=== PATIENT | female | born 1935 | race Caucasian/White ===

== ENCOUNTER → 2020-06-06 | Outpatient (CLI) | payer OTHER, MEDICARE | LOC: HYPER 13:37 | PROVIDERS: ATTEND Emergency Medicine | DX: L97.322 Non-pressure chronic ulcer of left ankle with fat layer exposed (principal); L20.84 Intrinsic (allergic) eczema; I87.2 Venous insufficiency (chronic) (peripheral); H40.9 Unspecified glaucoma; E78.5 Hyperlipidemia, unspecified; Z90.710 Acquired absence of both cervix and uterus; Z86.718 Personal history of other venous thrombosis and embolism; Z79.82 Long term (current) use of aspirin ==

== ENCOUNTER → 2020-06-14 | Outpatient (CLI) | payer OTHER, MEDICARE | LOC: HYPER 10:42 | PROVIDERS: ATTEND Emergency Medicine | DX: L97.322 Non-pressure chronic ulcer of left ankle with fat layer exposed (principal); L20.84 Intrinsic (allergic) eczema; I87.2 Venous insufficiency (chronic) (peripheral); H40.9 Unspecified glaucoma; E78.5 Hyperlipidemia, unspecified; Z90.710 Acquired absence of both cervix and uterus; Z86.718 Personal history of other venous thrombosis and embolism; Z79.82 Long term (current) use of aspirin ==

== ENCOUNTER → 2020-06-25 | Outpatient (CLI) | payer OTHER, MEDICARE | LOC: HYPER 10:15 | PROVIDERS: ATTEND Emergency Medicine | DX: L97.322 Non-pressure chronic ulcer of left ankle with fat layer exposed (principal); L20.84 Intrinsic (allergic) eczema; R60.0 Localized edema; E78.5 Hyperlipidemia, unspecified; H40.9 Unspecified glaucoma; I87.2 Venous insufficiency (chronic) (peripheral); Z86.718 Personal history of other venous thrombosis and embolism ==

== ENCOUNTER → 2020-07-03 | Outpatient (CLI) | payer OTHER, MEDICARE | LOC: HYPER 09:28 | PROVIDERS: ATTEND Emergency Medicine | DX: L97.322 Non-pressure chronic ulcer of left ankle with fat layer exposed (principal); L97.822 Non-pressure chronic ulcer of other part of left lower leg with fat layer exposed; I87.2 Venous insufficiency (chronic) (peripheral); L20.84 Intrinsic (allergic) eczema; R60.0 Localized edema; H40.9 Unspecified glaucoma; E78.5 Hyperlipidemia, unspecified; Z86.718 Personal history of other venous thrombosis and embolism; Z79.82 Long term (current) use of aspirin ==

== ENCOUNTER → 2020-07-10 | Outpatient (CLI) | payer OTHER, MEDICARE | LOC: HYPER 09:54 | PROVIDERS: ATTEND Emergency Medicine | DX: L97.322 Non-pressure chronic ulcer of left ankle with fat layer exposed (principal); L97.822 Non-pressure chronic ulcer of other part of left lower leg with fat layer exposed; I87.2 Venous insufficiency (chronic) (peripheral); L20.84 Intrinsic (allergic) eczema; R60.0 Localized edema; H40.9 Unspecified glaucoma; E78.5 Hyperlipidemia, unspecified; Z86.718 Personal history of other venous thrombosis and embolism; Z90.710 Acquired absence of both cervix and uterus; Z79.82 Long term (current) use of aspirin ==

== ENCOUNTER → 2020-07-17 | Outpatient (CLI) | payer OTHER, MEDICARE | LOC: HYPER 10:14 | PROVIDERS: ATTEND Emergency Medicine | DX: L97.322 Non-pressure chronic ulcer of left ankle with fat layer exposed (principal); L97.822 Non-pressure chronic ulcer of other part of left lower leg with fat layer exposed; I87.2 Venous insufficiency (chronic) (peripheral); L20.84 Intrinsic (allergic) eczema; R60.0 Localized edema; H40.9 Unspecified glaucoma; E78.5 Hyperlipidemia, unspecified; Z86.718 Personal history of other venous thrombosis and embolism; Z90.710 Acquired absence of both cervix and uterus; Z79.82 Long term (current) use of aspirin ==

== ENCOUNTER → 2020-08-02 | Outpatient (CLI) | payer OTHER, MEDICARE | LOC: HYPER 09:53 | PROVIDERS: ATTEND Emergency Medicine | DX: L97.322 Non-pressure chronic ulcer of left ankle with fat layer exposed (principal); I87.2 Venous insufficiency (chronic) (peripheral); L20.84 Intrinsic (allergic) eczema; R60.0 Localized edema; H40.9 Unspecified glaucoma; E78.5 Hyperlipidemia, unspecified; Z86.718 Personal history of other venous thrombosis and embolism; Z90.710 Acquired absence of both cervix and uterus ==

== ENCOUNTER → 2020-08-08 | Outpatient (CLI) | payer OTHER, MEDICARE | LOC: HYPER 13:34 | PROVIDERS: ATTEND Emergency Medicine | DX: L97.322 Non-pressure chronic ulcer of left ankle with fat layer exposed (principal); I87.2 Venous insufficiency (chronic) (peripheral); L20.84 Intrinsic (allergic) eczema; R60.0 Localized edema; H40.9 Unspecified glaucoma; E78.5 Hyperlipidemia, unspecified; Z86.718 Personal history of other venous thrombosis and embolism; Z90.710 Acquired absence of both cervix and uterus ==

== ENCOUNTER → 2020-08-08 | Outpatient (CLI) | payer OTHER, MEDICARE | LOC: SJCVCIMAG 11:12 | PROVIDERS: ATTEND Nuclear Medicine Nuclear Cardiology | DX: I73.9 Peripheral vascular disease, unspecified (principal); L97.828 Non-pressure chronic ulcer of other part of left lower leg with other specified severity; Z79.899 Other long term (current) drug therapy ==

== ENCOUNTER → 2020-08-21 | Outpatient (CLI) | payer OTHER, MEDICARE | LOC: HYPER 14:50 | PROVIDERS: ATTEND Emergency Medicine | DX: L97.322 Non-pressure chronic ulcer of left ankle with fat layer exposed (principal); L20.84 Intrinsic (allergic) eczema; I87.2 Venous insufficiency (chronic) (peripheral); R60.0 Localized edema; H40.9 Unspecified glaucoma; E78.5 Hyperlipidemia, unspecified; Z86.718 Personal history of other venous thrombosis and embolism; Z90.710 Acquired absence of both cervix and uterus ==

== ENCOUNTER → 2020-08-29 | Outpatient (CLI) | payer OTHER, MEDICARE | LOC: HYPER 09:06 | PROVIDERS: ATTEND Emergency Medicine | DX: L97.322 Non-pressure chronic ulcer of left ankle with fat layer exposed (principal); L20.84 Intrinsic (allergic) eczema; I87.2 Venous insufficiency (chronic) (peripheral); R60.0 Localized edema; H40.9 Unspecified glaucoma; E78.5 Hyperlipidemia, unspecified; Z86.718 Personal history of other venous thrombosis and embolism; Z90.710 Acquired absence of both cervix and uterus ==

== ENCOUNTER → 2020-09-05 | Outpatient (CLI) | payer OTHER, MEDICARE | LOC: HYPER 08:55 | PROVIDERS: ATTEND Emergency Medicine | DX: L97.322 Non-pressure chronic ulcer of left ankle with fat layer exposed (principal); L20.84 Intrinsic (allergic) eczema; I87.2 Venous insufficiency (chronic) (peripheral); R60.0 Localized edema; H40.9 Unspecified glaucoma; E78.5 Hyperlipidemia, unspecified; Z86.718 Personal history of other venous thrombosis and embolism; Z90.710 Acquired absence of both cervix and uterus ==

== ENCOUNTER → 2020-09-13 | Outpatient (CLI) | payer OTHER, MEDICARE | LOC: HYPER 14:41 | PROVIDERS: ATTEND Emergency Medicine | DX: L97.322 Non-pressure chronic ulcer of left ankle with fat layer exposed (principal); L97.822 Non-pressure chronic ulcer of other part of left lower leg with fat layer exposed; I87.2 Venous insufficiency (chronic) (peripheral); L20.84 Intrinsic (allergic) eczema; R60.0 Localized edema; H40.9 Unspecified glaucoma; E78.5 Hyperlipidemia, unspecified; Z79.82 Long term (current) use of aspirin; Z86.718 Personal history of other venous thrombosis and embolism; Z90.710 Acquired absence of both cervix and uterus ==

== ENCOUNTER → 2020-09-19 | Outpatient (CLI) | payer OTHER, MEDICARE | LOC: HYPER 15:08 | PROVIDERS: ATTEND Emergency Medicine | DX: L97.322 Non-pressure chronic ulcer of left ankle with fat layer exposed (principal); L20.84 Intrinsic (allergic) eczema; R60.0 Localized edema; H40.9 Unspecified glaucoma; E78.5 Hyperlipidemia, unspecified; I87.2 Venous insufficiency (chronic) (peripheral); Z86.718 Personal history of other venous thrombosis and embolism; Z90.710 Acquired absence of both cervix and uterus ==

== ENCOUNTER → 2020-09-27 | Outpatient (CLI) | payer OTHER, MEDICARE | LOC: HYPER 11:40 | PROVIDERS: ATTEND Emergency Medicine | DX: L97.322 Non-pressure chronic ulcer of left ankle with fat layer exposed (principal); L20.84 Intrinsic (allergic) eczema; R60.0 Localized edema; H40.9 Unspecified glaucoma; E78.5 Hyperlipidemia, unspecified; I87.2 Venous insufficiency (chronic) (peripheral); Z86.718 Personal history of other venous thrombosis and embolism; Z90.710 Acquired absence of both cervix and uterus ==

== ENCOUNTER → 2020-10-04 | Outpatient (CLI) | payer OTHER, MEDICARE | LOC: HYPER 09:25 | PROVIDERS: ATTEND Emergency Medicine | DX: L97.322 Non-pressure chronic ulcer of left ankle with fat layer exposed (principal); L20.84 Intrinsic (allergic) eczema; R60.0 Localized edema; H40.9 Unspecified glaucoma; E78.5 Hyperlipidemia, unspecified; I87.2 Venous insufficiency (chronic) (peripheral); Z86.718 Personal history of other venous thrombosis and embolism; Z90.710 Acquired absence of both cervix and uterus ==

== ENCOUNTER → 2020-10-11 | Outpatient (CLI) | payer OTHER, MEDICARE | LOC: HYPER 09:21 | PROVIDERS: ATTEND Emergency Medicine | DX: L97.322 Non-pressure chronic ulcer of left ankle with fat layer exposed (principal); L20.84 Intrinsic (allergic) eczema; R60.0 Localized edema; H40.9 Unspecified glaucoma; E78.5 Hyperlipidemia, unspecified; I87.2 Venous insufficiency (chronic) (peripheral); Z86.718 Personal history of other venous thrombosis and embolism; Z90.710 Acquired absence of both cervix and uterus ==

== ENCOUNTER → 2020-10-18 | Outpatient (CLI) | payer OTHER, MEDICARE | LOC: HYPER 09:23 | PROVIDERS: ATTEND Emergency Medicine | DX: L97.322 Non-pressure chronic ulcer of left ankle with fat layer exposed (principal); L20.84 Intrinsic (allergic) eczema; R60.0 Localized edema; H40.9 Unspecified glaucoma; E78.5 Hyperlipidemia, unspecified; I87.2 Venous insufficiency (chronic) (peripheral); Z86.718 Personal history of other venous thrombosis and embolism; Z90.710 Acquired absence of both cervix and uterus ==

== ENCOUNTER → 2020-10-25 | Outpatient (CLI) | payer OTHER, MEDICARE | LOC: HYPER 13:02 | PROVIDERS: ATTEND Emergency Medicine | DX: L97.322 Non-pressure chronic ulcer of left ankle with fat layer exposed (principal); L20.84 Intrinsic (allergic) eczema; R60.0 Localized edema; H40.9 Unspecified glaucoma; E78.5 Hyperlipidemia, unspecified; I87.2 Venous insufficiency (chronic) (peripheral); Z86.718 Personal history of other venous thrombosis and embolism ==

== ENCOUNTER → 2020-11-01 | Outpatient (CLI) | payer OTHER, MEDICARE | LOC: HYPER 13:39 | PROVIDERS: ATTEND Emergency Medicine | DX: L97.322 Non-pressure chronic ulcer of left ankle with fat layer exposed (principal); L97.822 Non-pressure chronic ulcer of other part of left lower leg with fat layer exposed; I87.2 Venous insufficiency (chronic) (peripheral); L20.84 Intrinsic (allergic) eczema; R60.0 Localized edema; H40.9 Unspecified glaucoma; E78.5 Hyperlipidemia, unspecified; Z86.718 Personal history of other venous thrombosis and embolism; Z79.82 Long term (current) use of aspirin; Z79.899 Other long term (current) drug therapy; Z90.710 Acquired absence of both cervix and uterus ==

== ENCOUNTER → 2020-11-08 | Outpatient (CLI) | payer OTHER, MEDICARE | LOC: HYPER 09:56 | PROVIDERS: ATTEND Emergency Medicine | DX: L97.322 Non-pressure chronic ulcer of left ankle with fat layer exposed (principal); L97.822 Non-pressure chronic ulcer of other part of left lower leg with fat layer exposed; I87.2 Venous insufficiency (chronic) (peripheral); L20.84 Intrinsic (allergic) eczema; R60.0 Localized edema; H40.9 Unspecified glaucoma; E78.5 Hyperlipidemia, unspecified; Z86.718 Personal history of other venous thrombosis and embolism; Z90.710 Acquired absence of both cervix and uterus; Z79.82 Long term (current) use of aspirin; Z79.899 Other long term (current) drug therapy ==

== ENCOUNTER → 2020-11-22 | Outpatient (CLI) | payer OTHER, MEDICARE | LOC: HYPER 10:08 | PROVIDERS: ATTEND Emergency Medicine | DX: L97.322 Non-pressure chronic ulcer of left ankle with fat layer exposed (principal); L97.822 Non-pressure chronic ulcer of other part of left lower leg with fat layer exposed; I87.2 Venous insufficiency (chronic) (peripheral); L20.84 Intrinsic (allergic) eczema; L84 Corns and callosities; R60.0 Localized edema; H40.9 Unspecified glaucoma; E78.5 Hyperlipidemia, unspecified; Z86.718 Personal history of other venous thrombosis and embolism ==

== ENCOUNTER → 2020-11-29 | Outpatient (CLI) | payer OTHER, MEDICARE | LOC: HYPER 09:08 | PROVIDERS: ATTEND Emergency Medicine | DX: L97.322 Non-pressure chronic ulcer of left ankle with fat layer exposed (principal); L97.822 Non-pressure chronic ulcer of other part of left lower leg with fat layer exposed; I87.2 Venous insufficiency (chronic) (peripheral); L20.84 Intrinsic (allergic) eczema; L84 Corns and callosities; R60.0 Localized edema; H40.9 Unspecified glaucoma; E78.5 Hyperlipidemia, unspecified; Z86.718 Personal history of other venous thrombosis and embolism ==

== ENCOUNTER → 2020-12-05 | Outpatient (CLI) | payer OTHER, MEDICARE | LOC: HYPER 14:32 | PROVIDERS: ATTEND Emergency Medicine | DX: L97.322 Non-pressure chronic ulcer of left ankle with fat layer exposed (principal); L97.822 Non-pressure chronic ulcer of other part of left lower leg with fat layer exposed; I87.2 Venous insufficiency (chronic) (peripheral); L20.84 Intrinsic (allergic) eczema; R60.0 Localized edema; H40.9 Unspecified glaucoma; E78.5 Hyperlipidemia, unspecified; Z86.718 Personal history of other venous thrombosis and embolism; Z79.82 Long term (current) use of aspirin; Z79.899 Other long term (current) drug therapy ==

== ENCOUNTER → 2020-12-13 | Outpatient (CLI) | payer OTHER, MEDICARE | LOC: HYPER 07:43 | PROVIDERS: ATTEND Emergency Medicine | DX: L97.322 Non-pressure chronic ulcer of left ankle with fat layer exposed (principal); L97.822 Non-pressure chronic ulcer of other part of left lower leg with fat layer exposed; I87.2 Venous insufficiency (chronic) (peripheral); L20.84 Intrinsic (allergic) eczema; R60.0 Localized edema; H40.9 Unspecified glaucoma; E78.5 Hyperlipidemia, unspecified; Z86.718 Personal history of other venous thrombosis and embolism; Z79.899 Other long term (current) drug therapy; Z79.82 Long term (current) use of aspirin; Z90.710 Acquired absence of both cervix and uterus ==

== ENCOUNTER → 2020-12-27 | Outpatient (CLI) | payer OTHER, MEDICARE ==
[~2020-12-27] MED LIST: ALLEGRA ALLERG180 MG PO; ASA81BEC PO; BIOTIN10 MG PO; COSOPT OCUMETER10 M1 OPHTHALMIC; EZETIMIBE10 MG PO; FUROSEMIDE 40 M40 M1 PO; LUMIGAN2.5 M1 OPHTHALMIC; SANTYL OINTMENT30 G1 TOP; VITAMIN D350 MC3 PO
== END ==
LOC: HYPER 08:01
PROVIDERS: ATTEND Emergency Medicine
DX: L97.322 Non-pressure chronic ulcer of left ankle with fat layer exposed (principal); L84 Corns and callosities; L20.84 Intrinsic (allergic) eczema; R60.0 Localized edema; I87.2 Venous insufficiency (chronic) (peripheral); H40.9 Unspecified glaucoma; E78.5 Hyperlipidemia, unspecified; Z86.718 Personal history of other venous thrombosis and embolism; Z79.82 Long term (current) use of aspirin; Z90.710 Acquired absence of both cervix and uterus

== ENCOUNTER → 2020-12-31 | Outpatient (CLI) | payer OTHER, MEDICARE | LOC: LAB 08:45 | PROVIDERS: ATTEND Student in an Organized Health Care Education/Training Program | DX: Z01.812 Encounter for preprocedural laboratory examination (principal); Z20.822 Contact with and (suspected) exposure to COVID-19 ==

== ENCOUNTER 2021-01-02 06:11 | Day surgery (SDC) | payer OTHER, MEDICARE ==
[~2021-01-02] VITALS: Ht 160 cm; Wt 58.1 kg
[2021-01-02 06:40] VITALS: BP 146/76
[2021-01-02 06:58] LABS: HEMATOCRIT 43.3 % (37.0-47.0); HEMOGLOBIN 14.2 gm/dL (12.0-15.0)
[2021-01-02] MEDS ORDERED: ULTRAM 50MG TAB50 MG PO ×2 (08:27)
--- NOTE | 2021-01-02 11:35 | EKG ---
[address] [place] [address] ELECTROCARDIOGRAM REPORT Name: GUALBERTO BARRIOS Room #: 150-1 [facility].#: [id number] Admission: 01/02/21 Attend Phys: Gio Mcneill Discharge: Date of : 37 Report #: [id number] [facility] Test Date: 2021-01-02 Test Time: 06:43:12 Pat Name: GUALBERTO BARRIOS Department: Room: 150 Gender: F [employer]: ERIKA : 1935 Requested By: Gio Lyn Order Number: [id number] MD: Jose Antonio Mccracken Measurements Intervals Murray Rate: 79 P: 50 MI: 164 QRS: -39 QRSD: 100 T: 158 QT: 364 QTc: 418 Interpretive Statements Sinus rhythm LVH with secondary repolarization abnormality No previous ECG available for comparison Electronically Signed On 01-02-2021 11:35:10 CDT by Jose Antonio Mccracken [email or web address] <ELECTRONICALLY SIGNED> By: Jose Antonio Mccracken MD, [facility] 01/02/21 [id number] Jose Antonio Mccracken MD, FACC /EPI
== END 2021-01-02 09:25 | disposition home or self-care (01) ==
LOC: OR → TBA 06:11 → OR 06:11 → TBA 06:12 → OR 09:25
PROVIDERS: ATTEND Surgery
DX: I87.2 Venous insufficiency (chronic) (peripheral) (principal); L97.829 Non-pressure chronic ulcer of other part of left lower leg with unspecified severity; T81.89XA Other complications of procedures, not elsewhere classified, initial encounter; Z98.890 Other specified postprocedural states; Z79.899 Other long term (current) drug therapy; Z98.41 Cataract extraction status, right eye; Z98.42 Cataract extraction status, left eye; Z90.710 Acquired absence of both cervix and uterus; Z90.711 Acquired absence of uterus with remaining cervical stump; Y83.8 Other surgical procedures as the cause of abnormal reaction of the patient, or of later complication, without mention of misadventure at the time of the procedure
CPT/HCPCS: 50010; 50101; 50386; 57091; 57119; 57120; 62110; 62900; 70005

== ENCOUNTER → 2021-01-03 | Outpatient (CLI) | payer OTHER, MEDICARE ==
[~2021-01-03] MED LIST changes: +ULTRAM 50MG TAB50 MG PO
== END ==
LOC: HYPER 07:55
PROVIDERS: ATTEND Emergency Medicine
DX: L97.322 Non-pressure chronic ulcer of left ankle with fat layer exposed (principal); L84 Corns and callosities; L20.84 Intrinsic (allergic) eczema; R60.0 Localized edema; I87.2 Venous insufficiency (chronic) (peripheral); H40.9 Unspecified glaucoma; E78.5 Hyperlipidemia, unspecified; Z86.718 Personal history of other venous thrombosis and embolism; Z79.82 Long term (current) use of aspirin; Z90.710 Acquired absence of both cervix and uterus

== ENCOUNTER → 2021-01-09 | Outpatient (CLI) | payer OTHER, MEDICARE | LOC: HYPER 08:05 | PROVIDERS: ATTEND Emergency Medicine | DX: L97.322 Non-pressure chronic ulcer of left ankle with fat layer exposed (principal); L84 Corns and callosities; L20.84 Intrinsic (allergic) eczema; R60.0 Localized edema; I87.2 Venous insufficiency (chronic) (peripheral); H40.9 Unspecified glaucoma; E78.5 Hyperlipidemia, unspecified; Z86.718 Personal history of other venous thrombosis and embolism; Z79.82 Long term (current) use of aspirin; Z90.710 Acquired absence of both cervix and uterus ==

== ENCOUNTER → 2021-01-16 | Outpatient (CLI) | payer OTHER, MEDICARE | LOC: HYPER 15:06 | PROVIDERS: ATTEND Emergency Medicine | DX: L97.322 Non-pressure chronic ulcer of left ankle with fat layer exposed (principal); L84 Corns and callosities; L20.84 Intrinsic (allergic) eczema; R60.0 Localized edema; I87.2 Venous insufficiency (chronic) (peripheral); H40.9 Unspecified glaucoma; E78.5 Hyperlipidemia, unspecified; Z86.718 Personal history of other venous thrombosis and embolism; Z79.82 Long term (current) use of aspirin; Z90.710 Acquired absence of both cervix and uterus ==

== ENCOUNTER → 2021-01-30 | Outpatient (CLI) | payer OTHER, MEDICARE | LOC: HYPER 07:54 | PROVIDERS: ATTEND Emergency Medicine | DX: L97.322 Non-pressure chronic ulcer of left ankle with fat layer exposed (principal); L84 Corns and callosities; L20.84 Intrinsic (allergic) eczema; R60.0 Localized edema; I87.2 Venous insufficiency (chronic) (peripheral); H40.9 Unspecified glaucoma; E78.5 Hyperlipidemia, unspecified; Z86.718 Personal history of other venous thrombosis and embolism; Z79.82 Long term (current) use of aspirin; Z90.710 Acquired absence of both cervix and uterus ==

== ENCOUNTER → 2021-02-05 | Outpatient (CLI) | payer OTHER, MEDICARE | LOC: HYPER 08:28 | PROVIDERS: ATTEND Emergency Medicine | DX: L97.322 Non-pressure chronic ulcer of left ankle with fat layer exposed (principal); L84 Corns and callosities; L20.84 Intrinsic (allergic) eczema; R60.0 Localized edema; I87.2 Venous insufficiency (chronic) (peripheral); H40.9 Unspecified glaucoma; E78.5 Hyperlipidemia, unspecified; Z86.718 Personal history of other venous thrombosis and embolism; Z79.82 Long term (current) use of aspirin; Z90.710 Acquired absence of both cervix and uterus ==

== ENCOUNTER → 2021-02-13 | Outpatient (CLI) | payer OTHER, MEDICARE | LOC: HYPER 07:51 | PROVIDERS: ATTEND Emergency Medicine | DX: L97.322 Non-pressure chronic ulcer of left ankle with fat layer exposed (principal); L84 Corns and callosities; L20.84 Intrinsic (allergic) eczema; R60.0 Localized edema; I87.2 Venous insufficiency (chronic) (peripheral); H40.9 Unspecified glaucoma; E78.5 Hyperlipidemia, unspecified; Z86.718 Personal history of other venous thrombosis and embolism; Z79.82 Long term (current) use of aspirin; Z90.710 Acquired absence of both cervix and uterus ==

== ENCOUNTER → 2021-02-20 | Outpatient (CLI) | payer OTHER, MEDICARE | LOC: HYPER 07:50 | PROVIDERS: ATTEND Emergency Medicine | DX: L97.322 Non-pressure chronic ulcer of left ankle with fat layer exposed (principal); L97.822 Non-pressure chronic ulcer of other part of left lower leg with fat layer exposed; I87.2 Venous insufficiency (chronic) (peripheral); L20.84 Intrinsic (allergic) eczema; R60.0 Localized edema; H40.9 Unspecified glaucoma; E78.5 Hyperlipidemia, unspecified; Z86.718 Personal history of other venous thrombosis and embolism; Z98.890 Other specified postprocedural states; Z79.82 Long term (current) use of aspirin; Z79.899 Other long term (current) drug therapy; Z90.710 Acquired absence of both cervix and uterus ==

== ENCOUNTER → 2021-02-27 | Outpatient (CLI) | payer OTHER, MEDICARE | LOC: HYPER 07:48 | PROVIDERS: ATTEND Emergency Medicine | DX: L97.322 Non-pressure chronic ulcer of left ankle with fat layer exposed (principal); L84 Corns and callosities; I87.2 Venous insufficiency (chronic) (peripheral); L20.84 Intrinsic (allergic) eczema; R60.0 Localized edema; H40.9 Unspecified glaucoma; E78.5 Hyperlipidemia, unspecified; Z86.718 Personal history of other venous thrombosis and embolism; Z79.82 Long term (current) use of aspirin; Z90.710 Acquired absence of both cervix and uterus ==

== ENCOUNTER → 2021-03-06 | Outpatient (CLI) | payer OTHER, MEDICARE | LOC: HYPER 07:46 | PROVIDERS: ATTEND Emergency Medicine | DX: L97.322 Non-pressure chronic ulcer of left ankle with fat layer exposed (principal); L84 Corns and callosities; I87.2 Venous insufficiency (chronic) (peripheral); L20.84 Intrinsic (allergic) eczema; R60.0 Localized edema; H40.9 Unspecified glaucoma; E78.5 Hyperlipidemia, unspecified; Z86.718 Personal history of other venous thrombosis and embolism; Z79.82 Long term (current) use of aspirin; Z90.710 Acquired absence of both cervix and uterus ==

== ENCOUNTER → 2021-03-13 | Outpatient (CLI) | payer OTHER, MEDICARE | LOC: HYPER 09:02 | PROVIDERS: ATTEND Emergency Medicine | DX: L97.322 Non-pressure chronic ulcer of left ankle with fat layer exposed (principal); L84 Corns and callosities; I87.2 Venous insufficiency (chronic) (peripheral); L20.84 Intrinsic (allergic) eczema; R60.0 Localized edema; H40.9 Unspecified glaucoma; E78.5 Hyperlipidemia, unspecified; Z86.718 Personal history of other venous thrombosis and embolism; Z79.82 Long term (current) use of aspirin; Z90.710 Acquired absence of both cervix and uterus ==

== ENCOUNTER → 2021-03-27 | Outpatient (CLI) | payer OTHER, MEDICARE | LOC: HYPER 07:46 | PROVIDERS: ATTEND Emergency Medicine | DX: L97.322 Non-pressure chronic ulcer of left ankle with fat layer exposed (principal); L84 Corns and callosities; I87.2 Venous insufficiency (chronic) (peripheral); L20.84 Intrinsic (allergic) eczema; R60.0 Localized edema; H40.9 Unspecified glaucoma; E78.5 Hyperlipidemia, unspecified; Z86.718 Personal history of other venous thrombosis and embolism; Z79.82 Long term (current) use of aspirin; Z90.710 Acquired absence of both cervix and uterus ==

== ENCOUNTER → 2021-04-03 | Outpatient (CLI) | payer OTHER, MEDICARE | LOC: HYPER 10:56 | PROVIDERS: ATTEND Emergency Medicine | DX: L97.322 Non-pressure chronic ulcer of left ankle with fat layer exposed (principal); L97.822 Non-pressure chronic ulcer of other part of left lower leg with fat layer exposed; I87.2 Venous insufficiency (chronic) (peripheral); L20.84 Intrinsic (allergic) eczema; R60.0 Localized edema; H40.9 Unspecified glaucoma; E78.5 Hyperlipidemia, unspecified; Z86.718 Personal history of other venous thrombosis and embolism; Z90.710 Acquired absence of both cervix and uterus; Z98.890 Other specified postprocedural states; Z79.82 Long term (current) use of aspirin; Z79.899 Other long term (current) drug therapy ==

== ENCOUNTER → 2021-04-09 | Outpatient (CLI) | payer OTHER, MEDICARE | LOC: HYPER 08:10 | PROVIDERS: ATTEND Emergency Medicine | DX: L97.322 Non-pressure chronic ulcer of left ankle with fat layer exposed (principal); L97.822 Non-pressure chronic ulcer of other part of left lower leg with fat layer exposed; I87.2 Venous insufficiency (chronic) (peripheral); L20.84 Intrinsic (allergic) eczema; R60.0 Localized edema; H40.9 Unspecified glaucoma; E78.5 Hyperlipidemia, unspecified; Z98.890 Other specified postprocedural states; Z86.718 Personal history of other venous thrombosis and embolism; Z79.82 Long term (current) use of aspirin; Z79.899 Other long term (current) drug therapy ==

== ENCOUNTER → 2021-04-17 | Outpatient (CLI) | payer OTHER, MEDICARE | LOC: HYPER 07:54 | PROVIDERS: ATTEND Emergency Medicine | DX: L97.322 Non-pressure chronic ulcer of left ankle with fat layer exposed (principal); L97.822 Non-pressure chronic ulcer of other part of left lower leg with fat layer exposed; L84 Corns and callosities; L20.84 Intrinsic (allergic) eczema; I87.2 Venous insufficiency (chronic) (peripheral); R60.0 Localized edema; H40.9 Unspecified glaucoma; E78.5 Hyperlipidemia, unspecified; Z86.718 Personal history of other venous thrombosis and embolism; Z79.82 Long term (current) use of aspirin ==

== ENCOUNTER → 2021-04-24 | Outpatient (CLI) | payer OTHER, MEDICARE | LOC: HYPER 07:55 | PROVIDERS: ATTEND Emergency Medicine | DX: L97.322 Non-pressure chronic ulcer of left ankle with fat layer exposed (principal); L97.822 Non-pressure chronic ulcer of other part of left lower leg with fat layer exposed; L84 Corns and callosities; L20.84 Intrinsic (allergic) eczema; I87.2 Venous insufficiency (chronic) (peripheral); R60.0 Localized edema; H40.9 Unspecified glaucoma; E78.5 Hyperlipidemia, unspecified; Z86.718 Personal history of other venous thrombosis and embolism; Z79.82 Long term (current) use of aspirin ==

== ENCOUNTER → 2021-05-01 | Outpatient (CLI) | payer OTHER, MEDICARE | LOC: HYPER 07:58 | PROVIDERS: ATTEND Emergency Medicine | DX: L97.322 Non-pressure chronic ulcer of left ankle with fat layer exposed (principal); L97.822 Non-pressure chronic ulcer of other part of left lower leg with fat layer exposed; L84 Corns and callosities; L20.84 Intrinsic (allergic) eczema; R60.0 Localized edema; I87.2 Venous insufficiency (chronic) (peripheral); H40.9 Unspecified glaucoma; E78.5 Hyperlipidemia, unspecified; Z86.718 Personal history of other venous thrombosis and embolism; Z79.82 Long term (current) use of aspirin ==

== ENCOUNTER → 2021-05-08 | Outpatient (CLI) | payer OTHER, MEDICARE | LOC: HYPER 07:58 | PROVIDERS: ATTEND Emergency Medicine | DX: L97.322 Non-pressure chronic ulcer of left ankle with fat layer exposed (principal); L97.822 Non-pressure chronic ulcer of other part of left lower leg with fat layer exposed; I87.2 Venous insufficiency (chronic) (peripheral); L20.84 Intrinsic (allergic) eczema; R60.0 Localized edema; H40.9 Unspecified glaucoma; E78.5 Hyperlipidemia, unspecified; Z86.718 Personal history of other venous thrombosis and embolism; Z98.890 Other specified postprocedural states; Z79.82 Long term (current) use of aspirin; Z79.899 Other long term (current) drug therapy; Z90.710 Acquired absence of both cervix and uterus ==

== ENCOUNTER → 2021-05-15 | Outpatient (CLI) | payer OTHER, MEDICARE | LOC: HYPER 07:59 | PROVIDERS: ATTEND Emergency Medicine | DX: L97.322 Non-pressure chronic ulcer of left ankle with fat layer exposed (principal); L84 Corns and callosities; I87.2 Venous insufficiency (chronic) (peripheral); L20.84 Intrinsic (allergic) eczema; R60.0 Localized edema; H40.9 Unspecified glaucoma; E78.5 Hyperlipidemia, unspecified; Z86.718 Personal history of other venous thrombosis and embolism; Z79.82 Long term (current) use of aspirin; Z90.710 Acquired absence of both cervix and uterus ==

== ENCOUNTER → 2021-05-22 | Outpatient (CLI) | payer OTHER, MEDICARE | LOC: HYPER 07:50 | PROVIDERS: ATTEND Emergency Medicine | DX: L97.322 Non-pressure chronic ulcer of left ankle with fat layer exposed (principal); L97.822 Non-pressure chronic ulcer of other part of left lower leg with fat layer exposed; I87.2 Venous insufficiency (chronic) (peripheral); L20.84 Intrinsic (allergic) eczema; R60.0 Localized edema; H40.9 Unspecified glaucoma; E78.5 Hyperlipidemia, unspecified; Z86.718 Personal history of other venous thrombosis and embolism; Z98.890 Other specified postprocedural states; Z79.82 Long term (current) use of aspirin; Z79.899 Other long term (current) drug therapy; Z90.710 Acquired absence of both cervix and uterus ==

== ENCOUNTER → 2021-05-29 | Outpatient (CLI) | payer OTHER, MEDICARE | LOC: HYPER 13:24 | PROVIDERS: ATTEND Emergency Medicine | DX: L97.322 Non-pressure chronic ulcer of left ankle with fat layer exposed (principal); L97.822 Non-pressure chronic ulcer of other part of left lower leg with fat layer exposed; I87.2 Venous insufficiency (chronic) (peripheral); L20.84 Intrinsic (allergic) eczema; R60.0 Localized edema; H40.9 Unspecified glaucoma; E78.5 Hyperlipidemia, unspecified; Z86.718 Personal history of other venous thrombosis and embolism; Z79.82 Long term (current) use of aspirin; Z90.710 Acquired absence of both cervix and uterus ==

== ENCOUNTER → 2021-06-05 | Outpatient (CLI) | payer OTHER, MEDICARE | LOC: HYPER 07:41 | PROVIDERS: ATTEND Emergency Medicine | DX: L97.322 Non-pressure chronic ulcer of left ankle with fat layer exposed (principal); L97.822 Non-pressure chronic ulcer of other part of left lower leg with fat layer exposed; L20.84 Intrinsic (allergic) eczema; I87.2 Venous insufficiency (chronic) (peripheral); R60.0 Localized edema; H40.9 Unspecified glaucoma; E78.5 Hyperlipidemia, unspecified; Z86.718 Personal history of other venous thrombosis and embolism; Z79.82 Long term (current) use of aspirin; Z90.710 Acquired absence of both cervix and uterus ==

== ENCOUNTER → 2021-06-12 | Outpatient (CLI) | payer OTHER, MEDICARE | LOC: HYPER 08:25 | PROVIDERS: ATTEND Emergency Medicine | DX: L97.322 Non-pressure chronic ulcer of left ankle with fat layer exposed (principal); L97.822 Non-pressure chronic ulcer of other part of left lower leg with fat layer exposed; L84 Corns and callosities; L20.84 Intrinsic (allergic) eczema; I87.2 Venous insufficiency (chronic) (peripheral); R60.0 Localized edema; H40.9 Unspecified glaucoma; E78.5 Hyperlipidemia, unspecified; Z86.718 Personal history of other venous thrombosis and embolism; Z79.82 Long term (current) use of aspirin; Z90.710 Acquired absence of both cervix and uterus ==

== ENCOUNTER → 2021-06-19 | Outpatient (CLI) | payer OTHER, MEDICARE | LOC: HYPER 09:00 | PROVIDERS: ATTEND Emergency Medicine | DX: L97.322 Non-pressure chronic ulcer of left ankle with fat layer exposed (principal); L97.822 Non-pressure chronic ulcer of other part of left lower leg with fat layer exposed; L84 Corns and callosities; L20.84 Intrinsic (allergic) eczema; I87.2 Venous insufficiency (chronic) (peripheral); R60.0 Localized edema; H40.9 Unspecified glaucoma; E78.5 Hyperlipidemia, unspecified; Z86.718 Personal history of other venous thrombosis and embolism; Z79.82 Long term (current) use of aspirin; Z90.710 Acquired absence of both cervix and uterus ==

== ENCOUNTER → 2021-06-26 | Outpatient (CLI) | payer OTHER, MEDICARE | LOC: HYPER 08:17 | PROVIDERS: ATTEND Emergency Medicine | DX: L97.322 Non-pressure chronic ulcer of left ankle with fat layer exposed (principal); L97.822 Non-pressure chronic ulcer of other part of left lower leg with fat layer exposed; L84 Corns and callosities; L20.84 Intrinsic (allergic) eczema; I87.2 Venous insufficiency (chronic) (peripheral); R60.0 Localized edema; H40.9 Unspecified glaucoma; E78.5 Hyperlipidemia, unspecified; Z86.718 Personal history of other venous thrombosis and embolism; Z79.82 Long term (current) use of aspirin; Z90.710 Acquired absence of both cervix and uterus ==

== ENCOUNTER → 2021-07-03 | Outpatient (CLI) | payer OTHER, MEDICARE | LOC: HYPER 08:07 | PROVIDERS: ATTEND Emergency Medicine | DX: L97.322 Non-pressure chronic ulcer of left ankle with fat layer exposed (principal); L97.822 Non-pressure chronic ulcer of other part of left lower leg with fat layer exposed; I87.2 Venous insufficiency (chronic) (peripheral); L20.84 Intrinsic (allergic) eczema; R60.0 Localized edema; H40.9 Unspecified glaucoma; E78.5 Hyperlipidemia, unspecified; Z86.718 Personal history of other venous thrombosis and embolism; Z98.890 Other specified postprocedural states; Z79.82 Long term (current) use of aspirin; Z79.899 Other long term (current) drug therapy; Z90.710 Acquired absence of both cervix and uterus ==

== ENCOUNTER → 2021-07-10 | Outpatient (CLI) | payer OTHER, MEDICARE | LOC: HYPER 09:15 | PROVIDERS: ATTEND Emergency Medicine | DX: L97.322 Non-pressure chronic ulcer of left ankle with fat layer exposed (principal); L97.822 Non-pressure chronic ulcer of other part of left lower leg with fat layer exposed; L84 Corns and callosities; I87.2 Venous insufficiency (chronic) (peripheral); L20.84 Intrinsic (allergic) eczema; R60.0 Localized edema; H40.9 Unspecified glaucoma; E78.5 Hyperlipidemia, unspecified; Z86.718 Personal history of other venous thrombosis and embolism; Z79.82 Long term (current) use of aspirin; Z90.710 Acquired absence of both cervix and uterus ==

== ENCOUNTER → 2021-07-24 | Outpatient (CLI) | payer OTHER, MEDICARE | LOC: HYPER 08:44 | PROVIDERS: ATTEND Emergency Medicine | DX: L97.322 Non-pressure chronic ulcer of left ankle with fat layer exposed (principal); L97.822 Non-pressure chronic ulcer of other part of left lower leg with fat layer exposed; L84 Corns and callosities; I87.2 Venous insufficiency (chronic) (peripheral); L20.84 Intrinsic (allergic) eczema; R60.0 Localized edema; H40.9 Unspecified glaucoma; E78.5 Hyperlipidemia, unspecified; Z86.718 Personal history of other venous thrombosis and embolism; Z79.82 Long term (current) use of aspirin; Z90.710 Acquired absence of both cervix and uterus ==

== ENCOUNTER → 2021-07-31 | Outpatient (CLI) | payer OTHER, MEDICARE | LOC: HYPER 10:28 | PROVIDERS: ATTEND Emergency Medicine | DX: L97.322 Non-pressure chronic ulcer of left ankle with fat layer exposed (principal); L97.822 Non-pressure chronic ulcer of other part of left lower leg with fat layer exposed; L84 Corns and callosities; L20.84 Intrinsic (allergic) eczema; I87.2 Venous insufficiency (chronic) (peripheral); R60.0 Localized edema; H40.9 Unspecified glaucoma; E78.5 Hyperlipidemia, unspecified; Z86.718 Personal history of other venous thrombosis and embolism; Z79.82 Long term (current) use of aspirin; Z90.710 Acquired absence of both cervix and uterus ==

== ENCOUNTER → 2021-08-07 | Outpatient (CLI) | payer OTHER, MEDICARE | LOC: HYPER 08:53 | PROVIDERS: ATTEND Emergency Medicine | DX: L97.322 Non-pressure chronic ulcer of left ankle with fat layer exposed (principal); L97.822 Non-pressure chronic ulcer of other part of left lower leg with fat layer exposed; I87.2 Venous insufficiency (chronic) (peripheral); L20.84 Intrinsic (allergic) eczema; R60.0 Localized edema; H40.9 Unspecified glaucoma; E78.5 Hyperlipidemia, unspecified; Z98.890 Other specified postprocedural states; Z86.718 Personal history of other venous thrombosis and embolism; Z79.82 Long term (current) use of aspirin; Z79.899 Other long term (current) drug therapy; Z90.710 Acquired absence of both cervix and uterus ==

== ENCOUNTER → 2021-08-21 | Outpatient (CLI) | payer OTHER, MEDICARE | LOC: HYPER 07:54 | PROVIDERS: ATTEND Emergency Medicine | DX: L97.322 Non-pressure chronic ulcer of left ankle with fat layer exposed (principal); L97.822 Non-pressure chronic ulcer of other part of left lower leg with fat layer exposed; I87.2 Venous insufficiency (chronic) (peripheral); L20.84 Intrinsic (allergic) eczema; R60.0 Localized edema; H40.9 Unspecified glaucoma; E78.5 Hyperlipidemia, unspecified; Z86.718 Personal history of other venous thrombosis and embolism; Z79.82 Long term (current) use of aspirin; Z90.710 Acquired absence of both cervix and uterus ==

== ENCOUNTER → 2021-08-28 | Outpatient (CLI) | payer OTHER, MEDICARE | LOC: HYPER 08:37 | PROVIDERS: ATTEND Emergency Medicine | DX: L97.322 Non-pressure chronic ulcer of left ankle with fat layer exposed (principal); L97.822 Non-pressure chronic ulcer of other part of left lower leg with fat layer exposed; I87.2 Venous insufficiency (chronic) (peripheral); L20.84 Intrinsic (allergic) eczema; R60.0 Localized edema; H40.9 Unspecified glaucoma; E78.5 Hyperlipidemia, unspecified; Z86.718 Personal history of other venous thrombosis and embolism; Z98.890 Other specified postprocedural states; Z79.82 Long term (current) use of aspirin; Z79.899 Other long term (current) drug therapy; Z90.710 Acquired absence of both cervix and uterus ==

== ENCOUNTER → 2021-09-04 | Outpatient (CLI) | payer OTHER, MEDICARE | LOC: HYPER 08:59 | PROVIDERS: ATTEND Emergency Medicine | DX: L97.322 Non-pressure chronic ulcer of left ankle with fat layer exposed (principal); L97.822 Non-pressure chronic ulcer of other part of left lower leg with fat layer exposed; L84 Corns and callosities; I87.2 Venous insufficiency (chronic) (peripheral); L20.84 Intrinsic (allergic) eczema; R60.0 Localized edema; H40.9 Unspecified glaucoma; E78.5 Hyperlipidemia, unspecified; Z86.718 Personal history of other venous thrombosis and embolism; Z79.82 Long term (current) use of aspirin; Z90.710 Acquired absence of both cervix and uterus ==

== ENCOUNTER → 2021-09-11 | Outpatient (CLI) | payer OTHER, MEDICARE | LOC: HYPER 08:47 | PROVIDERS: ATTEND Emergency Medicine | DX: L97.322 Non-pressure chronic ulcer of left ankle with fat layer exposed (principal); L97.822 Non-pressure chronic ulcer of other part of left lower leg with fat layer exposed; I87.2 Venous insufficiency (chronic) (peripheral); L20.84 Intrinsic (allergic) eczema; R60.0 Localized edema; H40.9 Unspecified glaucoma; E78.5 Hyperlipidemia, unspecified; Z86.718 Personal history of other venous thrombosis and embolism; Z79.82 Long term (current) use of aspirin; Z79.899 Other long term (current) drug therapy; Z98.890 Other specified postprocedural states; Z90.710 Acquired absence of both cervix and uterus ==

== ENCOUNTER → 2021-09-18 | Outpatient (CLI) | payer OTHER, MEDICARE | LOC: HYPER 08:21 | PROVIDERS: ATTEND Emergency Medicine | DX: L97.322 Non-pressure chronic ulcer of left ankle with fat layer exposed (principal); L97.822 Non-pressure chronic ulcer of other part of left lower leg with fat layer exposed; I87.2 Venous insufficiency (chronic) (peripheral); L20.84 Intrinsic (allergic) eczema; R60.0 Localized edema; H40.9 Unspecified glaucoma; E78.5 Hyperlipidemia, unspecified; Z86.718 Personal history of other venous thrombosis and embolism; Z98.890 Other specified postprocedural states; Z79.82 Long term (current) use of aspirin; Z79.899 Other long term (current) drug therapy; Z90.710 Acquired absence of both cervix and uterus ==

== ENCOUNTER → 2021-09-26 | Outpatient (CLI) | payer OTHER, MEDICARE | LOC: HYPER 12:54 | PROVIDERS: ATTEND Emergency Medicine | DX: L97.322 Non-pressure chronic ulcer of left ankle with fat layer exposed (principal); L97.822 Non-pressure chronic ulcer of other part of left lower leg with fat layer exposed; L84 Corns and callosities; L20.84 Intrinsic (allergic) eczema; I87.2 Venous insufficiency (chronic) (peripheral); R60.0 Localized edema; H40.9 Unspecified glaucoma; E78.5 Hyperlipidemia, unspecified; Z86.718 Personal history of other venous thrombosis and embolism; Z79.82 Long term (current) use of aspirin; Z90.710 Acquired absence of both cervix and uterus ==

== ENCOUNTER → 2021-10-02 | Outpatient (CLI) | payer OTHER, MEDICARE | LOC: HYPER 08:18 | PROVIDERS: ATTEND Emergency Medicine | DX: L97.322 Non-pressure chronic ulcer of left ankle with fat layer exposed (principal); L97.822 Non-pressure chronic ulcer of other part of left lower leg with fat layer exposed; I87.2 Venous insufficiency (chronic) (peripheral); L20.84 Intrinsic (allergic) eczema; R60.0 Localized edema; H40.9 Unspecified glaucoma; E78.5 Hyperlipidemia, unspecified; Z86.718 Personal history of other venous thrombosis and embolism; Z79.82 Long term (current) use of aspirin; Z79.899 Other long term (current) drug therapy; Z98.890 Other specified postprocedural states; Z90.710 Acquired absence of both cervix and uterus ==

== ENCOUNTER → 2021-10-09 | Outpatient (CLI) | payer OTHER, MEDICARE | LOC: HYPER 08:28 | PROVIDERS: ATTEND Emergency Medicine | DX: L97.322 Non-pressure chronic ulcer of left ankle with fat layer exposed (principal); L97.822 Non-pressure chronic ulcer of other part of left lower leg with fat layer exposed; L84 Corns and callosities; L20.84 Intrinsic (allergic) eczema; I87.2 Venous insufficiency (chronic) (peripheral); R60.0 Localized edema; H40.9 Unspecified glaucoma; E78.5 Hyperlipidemia, unspecified; Z86.718 Personal history of other venous thrombosis and embolism; Z79.82 Long term (current) use of aspirin; Z90.710 Acquired absence of both cervix and uterus ==

== ENCOUNTER → 2021-10-16 | Outpatient (CLI) | payer OTHER, MEDICARE | LOC: HYPER 08:58 | PROVIDERS: ATTEND Emergency Medicine | DX: L97.322 Non-pressure chronic ulcer of left ankle with fat layer exposed (principal); L97.822 Non-pressure chronic ulcer of other part of left lower leg with fat layer exposed; L84 Corns and callosities; L20.84 Intrinsic (allergic) eczema; I87.2 Venous insufficiency (chronic) (peripheral); R60.0 Localized edema; H40.9 Unspecified glaucoma; E78.5 Hyperlipidemia, unspecified; Z86.718 Personal history of other venous thrombosis and embolism; Z79.82 Long term (current) use of aspirin; Z90.710 Acquired absence of both cervix and uterus ==